=== PATIENT | female | born 1955 | race Caucasian/White ===

== ENCOUNTER 2022-06-21 07:35 | Inpatient (IN) | payer MEDICARE ==
[~2022-06-21] VITALS: Ht 165.1 cm; Wt 62.0 kg
[2022-06-21] MEDS ORDERED: WELLBUTRIN XL300 MG PO (08:02)
[2022-06-21] MEDS ORDERED: MULTI VITAMIN1 EACH PO (08:02)
[2022-06-21] MEDS ORDERED: FLUTICASONE PRO16 GM INH (13:34)
[2022-06-21] MEDS ORDERED: AMITRIPTYLINE H10 MG PO (13:35)
[2022-06-21] MEDS ORDERED: BUPROPION XL150 MG PO (13:36)
[2022-06-24] MEDS ORDERED: FISH OIL 1,0001 EAC2 PO (16:44)
[2022-06-24] MEDS ORDERED: CALCIUM500 MG PO (16:44)
[2022-06-24] MEDS ORDERED: ASPIRIN81 MG PO (16:44)
[2022-06-24] MEDS ORDERED: VITAMIN D350 MCG PO (16:45)
[2022-06-24] MEDS ORDERED: VITAMIN E400 UNI1 PO (16:45)
--- NOTE | 2022-06-26 14:14 | OR ---
[facility] [address] [place], [place] [address] Signed DATE OF OPERATION: 06/21/2022 SURGEON: Nhung Bethea MD PREOPERATIVE DIAGNOSIS: Acute small bowel obstruction/closed loop obstruction distal small bowel. POSTOPERATIVE DIAGNOSIS: Cecal volvulus with ischemic changes. PROCEDURE: Exploration of abdomen with resection of portion of right colon and ileum with end-to-end enterocolostomy. ANESTHESIA: General endotracheal, Chris Masoud, COTTON JAMMER and postoperative tap block. INDICATION: This 66-year-old white woman, is from [place], [place], and more than 2 weeks ago, underwent a robotic abdominal hysterectomy with bladder suspension by Dr. Blankenship, in [place], [place]. On Thursday of this past week, she had her 2-week followup and was doing quite well. Later that day after her followup visit, she began having rather severe and intense central abdominal pain, which worsened over time. 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 My inspection of the CT scan shows what is at least a closed loop obstruction with a very dilated bowel. Though she does not have systemic toxicity, I have recommended prompt exploration and remedy of the problem. Given the findings, a laparoscopic approach is unlikely to be beneficial and on that basis, I have recommended laparotomy minimizing the incision as much as possible. The patient and her daughter, who tends to her understand the risks of bleeding, infection, need for bowel resection, and other unforeseen complications and wished to proceed. FINDINGS: There was no evidence of small bowel obstruction proper. Rather, there was cecal volvulus, which was quite profound and with ischemic changes. There was no mila Electronically Signed By: NHUNG BETHEA MD 06/26/22 1414 PATIENT NAME: MARKELL LACKEY OPERATIVE REPORT DATE OF : 57 REPORT #: [id number] PHYSICIAN: NHUNG BETHEA MD PCP: OTHER PCP REPORT IS CONFIDENTIAL AND NOT TO BE RELEASED WITHOUT AUTHORIZATION [facility] [address] [place], [place] [address] Signed necrosis of the cecum it is admitted. There was evidence of prior appendectomy with real over an appendiceal stump. Notably, there was about 2 cm of appendiceal stump that remained. There was scar tissue on the pelvic sidewall, which may have formed a fixation point for the terminal ileum as it was densely adhesed there, though the right colon and cecum were quite mobile. Freeing of the terminal ileum and detorsing the cecum was undertaken, but there were ischemic changes of the cecum and although not frankly necrotic, cecal resection with portion of ileum was deemed most advisable for long-term management and was accomplished. The small bowel proximally was somewhat dilated, but not markedly so and the remaining right colon and transverse colon are viable. There was no other finding of note. DESCRIPTION OF PROCEDURE: The patient was brought to the operating room and given a general endotracheal anesthetic, preoperative antibiotic cefoxitin was given. Sequential compression device stockings were used and heparin subcutaneously administered. A Banerjee catheter was placed. A nasogastric tube was already in place. The abdomen was prepared with a chlorhexidine solution after removing skin adhesive from recent laparoscopic (robotic) trocar sites. A limited circumumbilical incision was made initially plan for entry into the abdominal cavity. A fair amount of ascites type fluid was noted. There was no evidence of purulence or foul odor. Small bowel loops appeared reasonably viable and not particularly excessively dilated. A palpable dilated segment of bowel was noted to the right of the midline and ischemic changes were quite obvious. An incision was extended a bit inferiorly and superiorly to allow for delivery of the small bowel out of the abdomen. The terminal ileum was quite normal and the antimesenteric fat pad of treive was easily identified signifying the terminal ileum. As it turns out, there was no small bowel obstruction proper, but rather cecal volvulus with secondary small bowel dilation. The small bowel was returned to the abdomen and the mobile cecum was delivered out of the abdomen. Ischemic changes were noted and tears of the serosa also noted. Although the cecum was not frankly necrotic, once detorsed it still had ischemic changes and on that basis, resection was deemed advisable. Notably, the terminal ileum was somewhat scarred to the right lower pelvic area, where prior appendectomy had been undertaken. The mesentery of the terminal ileum was freed from the pelvic encumbrance with electrocautery, mobilizing the terminal ileum more fully. The cecum and right colon were markedly nonfixed. The white line of Toldt was freed with electrocautery delivering the ileum and the cecum and portion of right colon out of the abdomen quite nicely. An area designated as viable of the right colon was identified and marked with a stitch Electronically Signed By: NHUNG BETHEA MD 06/26/22 1414 PATIENT NAME: MARKELL LACKEY OPERATIVE REPORT DATE OF : 57 REPORT #: [id number] PHYSICIAN: NHUNG BETHEA MD PCP: OTHER PCP REPORT IS CONFIDENTIAL AND NOT TO BE RELEASED WITHOUT AUTHORIZATION [facility] [address] [place], [place] [address] Signed as was the terminal ileum. The mesentery corresponding to the area for resection of the cecum and the ileum were scored with electrocautery. Hemostats applied to the vascular pedicles. The vascular pedicles were secured with 0 silk ties. A AP stapling device was used to transect the right mid colon as well as the terminal ileum. Additional segments were resected later so as to assure complete viability. Though a usual anastomosis for the ileum to the right colon would be an end-to-side approach in this situation, an end-to-end ileal right colostomy was a good size match and on that basis accomplished in an end-to-end configuration. Seromuscular bites of 3-0 silk suture were used on the right colon and serosa of the ileum with excision of the staple lines. The anastomosis was completed with an inner layer of interrupted 3-0 Vicryl and an outer layer of interrupted 3-0 silk. Excellent patency was noted to the anastomosis both proximal and distal segments were quite viable and there was no enteric leakage. The mesenteric defect was reapproximated with interrupted 3-0 silk suture to avoid transmesenteric herniation in the future. Copious irrigation of the abdomen was undertaken with warm saline solution. Excess saline solution was suctioned free. Palpation of the liver showed to be normal. The gallbladder was slightly distended, but no palpable stones were noted. Attention was then turned towards closure. The midline fascia was reapproximated with running bidirectional #1 PDS suture. Subcutaneous tissue was irrigated and skin closed with running subcuticular 3-0 Vicryl. Not mentioned previously was the change of gloves following the anastomosis that had been performed. The patient was ultimately extubated and transferred to the recovery room in good condition and suffered no complications. Sponge, needle, and instrument counts reported as correct x3. Blood loss was estimated at 50 mL. MD KEVIN Swenson/MODL /[id number] cc: Brianna Alvarez MD Electronically Signed By: NHUNG BETHEA MD 06/26/22 1414 PATIENT NAME: MARKELL LACKEY OPERATIVE REPORT DATE OF : 57 REPORT #: [id number] PHYSICIAN: NHUNG BETHEA MD PCP: OTHER PCP REPORT IS CONFIDENTIAL AND NOT TO BE RELEASED WITHOUT AUTHORIZATION [facility] [address] [place] [id number] Signed Copies: Brianna Blankenship WILLIAM S MD ~ Electronically Signed By: NHUNG BETHEA MD 06/26/22 1414 PATIENT NAME: MARKELL LACKEY OPERATIVE REPORT DATE OF : 57 REPORT #: [id number] PHYSICIAN: NHUNG BETHEA MD PCP: OTHER PCP REPORT IS CONFIDENTIAL AND NOT TO BE RELEASED WITHOUT AUTHORIZATION
--- NOTE | 2022-06-26 14:14 | HP ---
[facility] [address] [place], [place] [address] Signed ADMISSION DATE: 06/21/2022 REASON FOR ADMISSION: Closed-loop small bowel obstruction. HISTORY OF PRESENT ILLNESS: This 66-year-old white woman is from [place], [place]. She is here transitioning to live in [place] with her adult daughter. On Thursday (today is Thursday), she began having abdominal pain in the upper and mid abdomen, which was intense and cramping and had "waves of pain." She has had no bowel movement or passage of flatus since that time. It is notable that she underwent robotic hysterectomy and bladder sling operation in [place] by Dr. Stearns and had undergone her two-week followup the day that her symptoms started. She was having no symptoms upon her followup visit actually. The patient did have some postoperative constipation and was taking Colace and MiraLAX. She has a distant history of appendectomy and has had colonoscopy in October with no findings of concern. For evaluation in emergency room by Dr. Alvarez included clinical examination and lab studies which showed normal electrolytes and a normal CBC. Her COVID test is pending. A CT scan of the abdomen without GI contrast, but with IV contrast demonstrated a closed-loop obstruction of small bowel in the right mid abdomen. She is admitted for further evaluation and care. ALLERGIES: She does have allergies to bee sting and sulfa medications. MEDICATIONS: She does take Wellbutrin as well as multivitamin. SOCIAL HISTORY: She lived alone in [place] and now is transitioning to live in [place] currently with her daughter. 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 REVIEW OF SYSTEMS: She denies any shortness of breath or chest pain. She has less abdominal pain since the nasogastric tube has been placed. She had very severe pain three days ago, which has moderated in time. PHYSICAL EXAMINATION: GENERAL: A thin white woman, who does not look systemically toxic. Electronically Signed By: NHUNG BETHEA MD 06/26/22 1414 PATIENT NAME: MARKELL LACKEY HISTORY AND PHYSICAL DATE OF : 57 REPORT #: [id number] PHYSICIAN: NHUNG BETHEA MD PCP: OTHER PCP REPORT IS CONFIDENTIAL AND NOT TO BE RELEASED WITHOUT AUTHORIZATION [facility] [address] [place], [place] [address] Signed VITAL SIGNS: Weight is 131 pounds, BMI 21.9. HEENT: Trachea is midline. Mucous membranes slightly moist. She has received at least 1 L of crystalloid solution. CHEST: Normal respiratory excursion without wheeze or rhonchi. HEART: Regular without murmur. ABDOMEN: Flat, soft. Laparoscopic incision sites are healing well. There is no sign of herniation in any of them. She has no abdominal wall ecchymosis particularly. Abdominal palpation shows mild tenderness in the right abdomen. She does not have ascites or distended abdomen particularly. EXTREMITIES: No clubbing, cyanosis, or edema. LABORATORY STUDIES: White count of 9.3, hematocrit 47.7. Normal electrolytes. Creatinine 0.92. I have reviewed the CT scan in detail. It is noted as a "high-grade small bowel obstruction with fluid dilation of right mid and distal small bowel with a transition point in the right abdomen." A clear examination particularly on the coronal view shows an obvious closed-loop obstruction of bowel, which was markedly dilated, does not show signs of perforation (yet). ASSESSMENT: The patient has a closed-loop small-bowel obstruction. The etiology of this is uncertain; she has recently had robotic surgery. There appears to be no entanglement of the bowel and to the recent operative site intra-abdominally and this certainly no sign of incisional hernia. She has had appendectomy and this may have served as a focus of adhesions to cause a closed-loop obstruction finding. I would recommend operation. I believe a laparoscopic approach would be unlikely in this situation; she has had four days now of probable closed-loop obstruction and I think there may be a high risk of ischemic bowel for which a bowel resection may be necessary. It is certainly peculiar that her symptoms began only after her postoperative visit, but they have been unremitting and worsening over time. I discussed all this with the patient and her daughter who is present. PLAN: We will initiate additional fluid resuscitation, IV antibiotic cefoxitin, anticipating operation today. This may require simple detorsion or lysis of adhesions or may require a small bowel resection. It is that remains to be determined. Nhung Bethea MD Electronically Signed By: NHUNG BETHEA MD 06/26/22 1414 PATIENT NAME: MARKELL LACKEY HISTORY AND PHYSICAL DATE OF : 57 REPORT #: [id number] PHYSICIAN: NHUNG BETHEA MD PCP: OTHER PCP REPORT IS CONFIDENTIAL AND NOT TO BE RELEASED WITHOUT AUTHORIZATION [address] [address] Signed /[facility] /[id number] cc: Brianna Blankenship MD Copies: ~ Electronically Signed By: NHUNG BTEHEA MD 06/26/22 1414 PATIENT NAME: MARKELL LACKEY HISTORY AND PHYSICAL DATE OF : 57 REPORT #: [id number] PHYSICIAN: NHUNG BETHEA MD PCP: OTHER PCP REPORT IS CONFIDENTIAL AND NOT TO BE RELEASED WITHOUT AUTHORIZATION
[2022-06-28] MEDS ORDERED: ACETAMINOPHEN500 MG PO (16:02)
[2022-06-28] MEDS ORDERED: ONDANSETRON4 MG/2 M1 IV (16:03)
[2022-06-28] MEDS ORDERED: FAMOTIDINE20 MG PO (16:03)
--- NOTE | 2022-06-29 15:53 | DS ---
[facility] [address] [place], [place] [address] Signed ADMISSION DATE: 06/21/2022 DISCHARGE DATE: 06/28/2022 REASON FOR ADMISSION: This 66-year-old white woman is from [place], [place] and transitioned to live in [place] with her adult daughter. On Thursday (admission was Thursday), she began having abdominal pain in the upper and right mid abdomen, which was intense and cramping and came in waves. She had no bowel movement or passage of a flatus since that time. She recently underwent robotic hysterectomy and bladder sling operation in [place], [place] by Dr. Blankenship and had undergone her two week followup the day that her symptoms started. She was having no symptoms at the time of her postoperative visit, however. Her evaluation in the emergency room by Dr. Armando Culver included a CT scan of the abdomen with IV, but without GI contrast demonstrating a closed-loop obstruction of what appeared to be small bowel in the right mid abdomen. She was admitted for further evaluation and care. PERTINENT PHYSICAL EXAMINATION: GENERAL: Showed a thin white woman. VITAL SIGNS: A 131 pounds, BMI 21.9. NECK: Trachea was midline. HEENT: Mucous membranes slightly moist. CHEST: Clear. HEART: Regular, without murmur. ABDOMEN: Flat and soft. Laparoscopic incision sites were healing well. There was no sign of herniation. She had no abdominal wall ecchymosis particularly, abdominal palpation shows mild tenderness in the right abdomen. She did not have ascites or abdominal distention particularly. LABORATORY STUDIES: Showed white count 9.3 and hematocrit 47.7. Creatinine 0.92. Other studies were normal. HOSPITAL COURSE: She was considered to have probable closed loop small bowel obstruction based on radiographic findings and radiologist interpretation. She underwent prompt exploration of the abdomen, which showed no evidence of small bowel obstruction, but rather a cecal volvulus with ischemic changes of the cecum. She underwent segmental bowel resection of ileum and cecum and portion of right colon with an end-to-end ileocolonic anastomosis. Her postoperative course was somewhat delayed in comparison to usual, but she did have progressive recovery, particularly after withdrawal of perioperative opiates that had Electronically Signed By: NHUNG BETHEA MD 06/29/22 1553 PATIENT NAME: MARKELL LACKEY DISCHARGE SUMMARY DATE OF : 57 REPORT #: [id number] PHYSICIAN: NHUNG BETHEA MD PCP: OTHER PCP REPORT IS CONFIDENTIAL AND NOT TO BE RELEASED WITHOUT AUTHORIZATION [address] [address] Signed been given. Notably, she had been given abdominal wall tap blocks for postoperative pain management. In time, she had recovery of bowel function as well as improvement of her pain. By the day of discharge, she is ambulating well, tolerating a regular diet, has multiple bowel movements and no evidence of problem. DISCHARGE MEDICATIONS: Included: 1. Tylenol 1000 mg p.o. q.6 hours p.r.n. pain #30, refill three. 2. Zofran 4 mg 1-2 q.6 hours as needed for nausea (unlikely now), #10. 3. Pepcid 20 mg p.o. q.12 hours, #60, refill one. She will resume her usual medication, which includes: 1. Multivitamin. 2. Fluticasone spray each nostril b.i.d. as needed. 3. Bupropion XL 150 mg tablet, extended release two tablets p.o. daily. 4. Aspirin 81 mg p.o. daily. 5. Calcium carbonate tablet 500 mg p.o. daily. 6. [place]-3 fatty acid fish oil pill one p.o. daily. 7. Vitamin D3 150 mcg (2000 unit) cap daily. 8. Vitamin E, mixed vitamin one capsule daily. FOLLOWUP PLAN: She is return to see me in approximately 4 weeks. She will call to make an appointment on Thursday. She is advised to lift no more than 20 pounds for the next 4 weeks. She restricted in her diet. She is encouraged to ambulate on a routine basis. DISCHARGE DIAGNOSES: 1. Acute abdominal pain with the findings of cecal volvulus, status post exploration and right partial colectomy with primary anastomosis. 2. Recent robotic operation for bladder suspension and hysterectomy without complication. 3. Anxiety disorder. MD KEVIN Swenson/[facility]ELISS[facility] /[id number] Electronically Signed By: NHUNG BETHEA MD 06/29/22 1553 PATIENT NAME: MRAKELL LACKEY DISCHARGE SUMMARY DATE OF : 57 REPORT #: [id number] PHYSICIAN: NHUNG BETHEA MD PCP: OTHER PCP REPORT IS CONFIDENTIAL AND NOT TO BE RELEASED WITHOUT AUTHORIZATION [address] [address] Signed cc: Dr. Pattie Culver MD Copies: ARMANDO CULVER MD ~ Electronically Signed By: NHUNG BETHEA MD 06/29/22 1553 PATIENT NAME: MARKELL LACKEY DISCHARGE SUMMARY DATE OF : 57 REPORT #: [id number] PHYSICIAN: NHUNG BETHEA MD PCP: OTHER PCP REPORT IS CONFIDENTIAL AND NOT TO BE RELEASED WITHOUT AUTHORIZATION
== END 2022-06-28 17:35 | disposition home or self-care (01) | DRG 331 ==
LOC: ED 07:35 → MS 07:37
PROVIDERS: ADMIT Surgery; ATTEND Surgery
PROC: 8E0W4CZ Robotic Assisted Procedure of Trunk Region, Percutaneous Endoscopic Approach (ICD-10-PCS; 2022-06-21)
PROC: 0DBF4ZZ Excision of Right Large Intestine, Percutaneous Endoscopic Approach (ICD-10-PCS; principal; 2022-06-21 16:25)
DX: K55.1 Chronic vascular disorders of intestine (principal); Z20.822 Contact with and (suspected) exposure to COVID-19; F41.9 Anxiety disorder, unspecified; Z91.030 Bee allergy status; Z90.710 Acquired absence of both cervix and uterus; Z88.2 Allergy status to sulfonamides; Z79.899 Other long term (current) drug therapy
CPT/HCPCS: 36415; 74018; 74019; 74177; 76942; 80048; 80053; 81001; 83690; 83735; 85025; 87088; 87502; 94762; 96361; 96375; 99285-25; A9270; C9803; J0131; J0694; J1100; J1170; J1644; J1885; J2001; J2270; J2405; J2704; J2765; J2795; J3010; J3475; J7030; J7121; Q9967; U0003

== ENCOUNTER 2022-07-05 17:52 | Emergency (ER) | payer MEDICARE ==
[~2022-07-05] VITALS: Ht 165.1 cm; Wt 58.5 kg
[~2022-07-05 17:52] MED LIST: ACETAMINOPHEN500 MG PO; AMITRIPTYLINE H10 MG PO; ASPIRIN81 MG PO; BUPROPION XL150 MG PO; CALCIUM500 MG PO; FAMOTIDINE20 MG PO; FISH OIL 1,0001 EAC2 PO; FLUTICASONE PRO16 GM INH; MULTI VITAMIN1 EACH PO; ONDANSETRON4 MG/2 M1 IV; VITAMIN D350 MCG PO; VITAMIN E400 UNI1 PO; WELLBUTRIN XL300 MG PO
--- OUTSIDE RECORDS SUMMARY | 2022-07-05 18:00 | XMS ---
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 EElissa VISIT COUNT (12 MO.) 2 [facility] TOTAL 2 NOTE: Visits indicate total known visits. ED/UCC VISIT TRACKING (12 MO.) 07/05/2022 17:53 [facility] TYPE: Emergency COMPLAINT: - POST OP PROBLEM 06/21/2022 07:36 [facility] TYPE: Emergency COMPLAINT: - ABD PAIN INPATIENT VISIT TRACKING (12 MO.) 06/21/2022 10:[address] [facility] [place] TYPE: Medical Surgical COMPLAINT: - SBO DIAGNOSES: - Contact with and (suspected) exposure to COVID-19 - Other correction (current) drug therapy - Contact with and (suspected) exposure to COVID-19 - Allergy status to sulfonamides - Anxiety disorder, unspecified - Allergy status to sulfonamides - Other ascites - Volvulus - Other correction (current) drug therapy - Bee allergy status - Anxiety disorder, unspecified - Acquired absence of both cervix and uterus - Bee allergy status - Chronic vascular disorders of intestine - Acquired absence of both cervix and uterus - Unspecified intestinal obstruction, unspecified as to partial versus complete obstruction - Chronic vascular disorders of intestine [email or web address]
[2022-07-05] MEDS ORDERED: CEPHALEXIN500 M1 PO (20:07)
--- NOTE | 2022-07-07 18:00 | EKG ---
[facility] [address] [facility] [place], [place] [address] Signed Sinus tachycardia Otherwise normal ECG No previous ECGs available Confirmed by AMARI GROSSMAN MD ([id number]) on 07/07/2022 6:00:26 PM Electronically Signed By: AMARI GROSSMAN MD 07/07/22 1800 PATIENT NAME: MARKELL LACKEY Electrocardiogram DATE OF : 57 PHYSICIAN: AMARI GROSSMAN MD REPORT #: [id number] REPORT IS CONFIDENTIAL AND NOT TO BE RELEASED WITHOUT AUTHORIZATION
== END 2022-07-05 20:44 | disposition home or self-care (01) ==
LOC: ED 17:52
DX: T81.41XA Infection following a procedure, superficial incisional surgical site, initial encounter (principal); Z88.2 Allergy status to sulfonamides; Z91.030 Bee allergy status; Z79.899 Other long term (current) drug therapy; Z79.82 Long term (current) use of aspirin
CPT/HCPCS: 36415; 71045; 80053; 81001; 83605; 85025; 85610; 85730; 87502; 93005; 93010; 99284-25; A9270; C9803; J0171; U0003

== ENCOUNTER 2022-11-08 07:29 | Inpatient (IN) | payer MEDICARE ==
[~2022-11-08] VITALS: Ht 165.1 cm; Wt 65.0 kg
--- NOTE | ~2022-11-08 | DS ---
[facility] [address], [place] [address] Draft ADMISSION DATE: 11/10/2022 DISCHARGE DATE: 11/13/2022 REASON FOR ADMISSION: This 67-year-old white woman underwent complex abdominal wall reconstruction for an incisional hernia by az on November 04 (Thursday). She is admitted on Thursday following operation. She had been admitted postoperative for pain management, required 48 hours of hospitalization. Component separation technique was used for closure of the hernia. Medialization of the linea alba was accomplished as well as implantation of Prolene mesh in the properitoneal space. The patient while at home had bloating, nausea, and inability to tolerate oral intake. Her family took her to [facility] Room in [facility], where she underwent a CT scan, which noted to have stool within the right colon, but some distended loops of small bowel including those on the left side, she was considered possibly to have an ileus. She was discharged to home nevertheless, and had been taking Dilaudid, Motrin and Tylenol for pain medication. 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 She is admitted for further evaluation and care on the basis of abdominal distention, dilated loops of small bowel and findings suggestive of ileus. PERTINENT PHYSICAL EXAMINATION: GENERAL: Showed a pleasant white woman, who does not look systemically toxic. VITAL SIGNS: Temperature 98.6, pulse 107, blood pressure 145/92. HEENT: Mucous membranes are slightly dry. ABDOMEN: Quite distended compared to preoperatively and postoperatively recently. Drain showed serosanguineous fluid. She did not have tenderness to the abdominal wall in any way. There is no sign of erythema, crepitus, or signs of ecchymosis. HOSPITAL COURSE: She was considered likely to have an ileus of uncertain etiology. She was unable to tolerate oral intake and on that basis, was admitted for IV hydration and further monitoring. The patient had recurrent nausea and protracted vomiting, for which a nasogastric tube was placed, which improved her clinical situation quite markedly. She had a fair amount of distended bowel loops. She was begun on intravenous Reglan, nasogastric tube continued to put out a fair amount of bilious fluid. She began having some bowel function with air and some liquid bowel movement. Her drains that had been placed bilaterally in the subcutaneous space had diminishing amounts of output. Nasogastric tube was removed and she was initiated on a liquid diet and subsequently advanced to full liquid and ultimately a solid diet. She was discontinued on the Reglan, which she tolerated well. By day of discharge, she is ambulating well, PATIENT NAME: MARKELL LACKEY DISCHARGE SUMMARY DATE OF : 57 REPORT #: [id number] PHYSICIAN: NHUNG BETHEA MD PCP: COLIN VELA REPORT IS CONFIDENTIAL AND NOT TO BE RELEASED WITHOUT AUTHORIZATION [address] [address] [place] tolerating a regular diet, has no abdominal distention and the drains in the subcutaneous space had been removed. It is considered probable that she had an ileus of uncertain etiology with associated dehydration and has recovered fully from it. DISCHARGE MEDICATIONS: Include: 1. Fluticasone spray inhaler b.i.d. 2. Bupropion XL 150 mg two tablets p.o. daily. 3. Aspirin 81 mg p.o. daily. 4. Calcium carbonate 500 mg p.o. daily. 5. Fish oil tablet one p.o. daily. 6. Vitamin D3 2000 units p.o. daily. 7. Vitamin E 400 units p.o. daily. 8. Magnesium chloride 64 mg tablet p.o. daily. 9. Ibuprofen 600 mg p.o. q.6 hours p.r.n. pain. 10. Tylenol 1000 mg p.o. q.6 hours p.r.n. pain. 11. Milk of magnesia 400 mg for 5 mL p.o. daily as needed. 12. She will complete if necessary her Dilaudid 4 mg one-two p.o. q.4 hours p.r.n. pain, though she has only 10 tablets remaining. 13. Her Augmentin that was prescribed postoperatively will be discontinued. DISCHARGE DIAGNOSES: 1. Postoperative prolonged and protracted ileus with spontaneous resolution with supportive measures. 2. History of recent complex abdominal wall reconstruction included component separation technique and implantation of Prolene mesh in underlay technique. 3. Distant history of robotic hysterectomy. 4. 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 5. Anxiety disorder. MD KEVIN Swenson/CHAVA /[id number] PATIENT NAME: MARKELL LACKEYIS DISCHARGE SUMMARY DATE OF : 57 REPORT #: [id number] PHYSICIAN: NHUNG BETHEA MD PCP: COLIN VELA REPORT IS CONFIDENTIAL AND NOT TO BE RELEASED WITHOUT AUTHORIZATION [address] [place], [place] [address] Draft cc: Armando Alvarez MD Copies: ARMANDO ALVAREZ MD ~ PATIENT NAME: MARKELL LACKEY DISCHARGE SUMMARY DATE OF : 57 REPORT #: [id number] PHYSICIAN: NHUNG BETHEA MD PCP: COLIN VELA REPORT IS CONFIDENTIAL AND NOT TO BE RELEASED WITHOUT AUTHORIZATION
[~2022-11-08 07:29] MED LIST changes: +ADULT LOW DOSE81 MG PO; +ADVIL200 M1 PO; -ASPIRIN81 MG PO; +AUGMENTIN 500-1 EACH PO; +CEPHALEXIN500 M1 PO; +DILAUDID4 MG PO; +LASIX40 MG; +MAG6464 MG PO; +MILK OF MA400 MG/5 M PO; +MOTRIN IB200 MG PO; +TYLENOL EXTRA500 MG PO; +[UNRECOGNIZED DRUG - OTHER] PO
--- OUTSIDE RECORDS SUMMARY | 2022-11-08 07:32 | XMS ---
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 E.D. VISIT COUNT (12 MO.) 1 Located Within [facility] 3 [facility] TOTAL 4 NOTE: Visits indicate total known visits. ED/UCC VISIT TRACKING (12 MO.) 11/08/2022 07:29 [facility] TYPE: Emergency COMPLAINT: - POST SURGERY SIDE EFFECTS [facility]07/2022 16:[facility] DIAGNOSES: - Post-op Problem - Drug induced constipation 07/05/2022 17:53 [facility] TYPE: Emergency COMPLAINT: - POST OP PROBLEM DIAGNOSES: - Allergy status to sulfonamides - Other intermediate teacher (current) drug therapy - Infection following a procedure, superficial incisional surgical site, initial encounter - alf (current) use of aspirin - Contact with and (suspected) exposure to COVID-19 - Bee allergy status 06/21/2022 07:36 [facility] TYPE: Emergency COMPLAINT: - ABD PAIN INPATIENT VISIT TRACKING (12 MO.) 06/21/2022 10:57 [facility] TYPE: Medical Surgical COMPLAINT: - SBO DIAGNOSES: - Allergy status to sulfonamides - Anxiety disorder, unspecified - Allergy status to sulfonamides - Other ascites - Volvulus - Other snf (current) drug therapy - Bee allergy status - Anxiety disorder, unspecified - Acquired absence of both cervix and uterus - Bee allergy status - Chronic vascular disorders of intestine - Unspecified intestinal obstruction, unspecified as to partial versus complete obstruction - Acquired absence of both cervix and uterus - Chronic vascular disorders of intestine - Contact with and (suspected) exposure to COVID-19 - Other intermediate teacher (current) drug therapy - Contact with and (suspected) exposure to COVID-19 [email or web address]
--- NOTE | 2022-11-08 10:30 | NUR ---
PT ASSESSMENT COMPLETED. PT RESTING IN BED WITH CALL LIGHT WITHIN REACH, BEDRAIL UP FOR SAFETY. PT HAS LR @ 125ML/HR IN LEFT AC IV. PT TOLERATING WELL.
--- NOTE | 2022-11-08 12:06 | NUR ---
PT CALLED STATING IV PUMP IS BEEPING. PT IV ALARMED FOR DISTAL OCCLUSION. IV STARTED. PT RESTING IN BED, CALL LIGHT WITHIN REACH AND BEDRAIL UP FOR SAFETY. PT DENIES FURTHER NEEDS AT THIS TIME.
--- NOTE | 2022-11-08 12:26 | NUR ---
PT REQUESTING A HEATING PAD AND NAUSEA MEDICATION. PRN ZOFRAN GIVEN AT THIS TIME (SEE EMAR). PRIMARY NURSE UPDATED.
--- NOTE | 2022-11-08 13:42 | NUR ---
PATIENT HAD 200ML GREEN BILE EMESIS. ADMINISTERED REGLAN IV PER MAR AND PRN TORADOL IV. PATIENT RATING PAIN 6/10 ON PAIN SCALE AFTER EMESIS. ABDOMINAL BINDER IN PLACE, PATIENT HAS MARNI MIDLINE INTACT. ABDOMEN APPEARS DISTENDED WITH BOWEL TONES HYPOACTIVE. PATIENT REPORTS THAT SHE HAS NOT ATE IN TWO DAYS AND HAS NOT PASSED ANY FLATUS. PATIENT RESTING BACK IN BED WATCHING TV, APPEARS CALM. FRIEND AT BEDSIDE. NO OTHER NEEDS AT THIS TIME.
--- NOTE | 2022-11-08 16:15 | NUR ---
medications reconciled
--- NOTE | 2022-11-08 19:30 | NUR ---
REPORT RECEIVED FROM ROXANN DEVLIN. PT SITTING UP IN CHAIR. PT REQUESTING TO WALK. PROVIDED PT WITH A SECOND GOWN TO COVER BACK SIDE. AND IV PUMP UNPLUGGED FOR PT TO WALK AROUND MED SURG FLOOR. NO OTHER NEEDS FROM THIS RN AT THIS TIME.
--- NOTE | 2022-11-08 21:18 | NUR ---
IN TO ADMINISTER MEDICATION, SEE MAR. NATALIE CNA IN WITH PT. PT TOELRATES SUB-Q INJECTION WELL. ASSESSMENT COMPLETE. LUNG SOUNDS CLEAR. BOWEL TONES HYPOACTIVE. PT REPORTS NO TENDERNESS WITH PALPATION TO ABD. ABD SLIGHTLY FIRM. MODERATE DISTENTION NOTED. PT REPORTS PAIN 6/10 IN LOWER BACK AND "LITTLE BIT IN MY BELLY." PERI DRAIN ON LLQ EMPTIED 25ML OF SEROSANGUENOUS FULID. PERI DRAIN ON RLL EMPTIED 10ML OF SEROSANGUENOUS FLUID. MIDLINE INCISION STERISTRIPS C/D/I. ABD BINDER IN PLACE. DRESSING TO LLQ D/I WITH SEROSANGUENOUS SHADOWING COVERING DRESSING. DRESSING TO RLQ D/I WITH SEROSANGUENOUS SHADOWING COVERING DRESSING. ICE CHIPS PROVIDED. IV INFUSING WNL. PT REPORTS NO OTHER NEEDS AT THIS TIME. CALL LIGHT IN REACH.
--- NOTE | 2022-11-08 22:14 | NUR ---
IN ROOM TO ADMINISTER PRN PAIN MEDICATION FOR PAIN 6/10 IN LOWER BACK AND RLQ AND RUQ, SEE MAR. UPON ENTERING ROOM PT REPORTS EMESIS. EMESIS BAG FILLED TO 400ML LINE. OFFERED PT JACOBO, PT REFUSES AND STATES "THAT MAKES IT WORSE." OUT OF ROOM TO CALL DR. BETHEA. THIS RN ASKED MICKY ESTRADA TO PROVIDE PT WITH MORE EMESIS BAG.
--- NOTE | 2022-11-08 22:29 | NUR ---
THIS RN CALLED DR. BETHEA DUE TO PT EMESIS AND REFUSING ZOFRAN. NEW ORDERS RECEIVED TO PLACE NG TUBE AND CHEST X-RAY TO CONFIRM. VERIFIED WITH READ BACK.
--- NOTE | 2022-11-08 22:43 | NUR ---
THIS RN, IN ROOM WITH ROXANN LERNER AND ROXANN MARTIN. TALKED TO PT ABOUT HAVING NG TUBE PLACED. PT AGREEABLE TO NG TUBE PLACEMENT. THIS RN ATTEMPTED TO PLACE NG TUBE TO L NOSTRIL, UNSUCCESSFUL TO GET THE TIP OF THE NG TUBE TO ADVANCE. ROXANN LERNER ATTEMPTED WITH L NOSTRIL AND WAS ALSO HAVING A DIFFICULT TIME GETTING THE TIP OF THE NG TUBE TO ADVANCE. ROXANN LERNER ATTEMPTED R NOSTRIL AND WAS SUCCESSFUL WITH GETTING THE NG TUBE TO ADVANCE. IMAGING CALLED TO PERFORM CHEST X-RAY TO CONFIRM PLACEMENT. PT SITTING UP IN BED WITH EYES CLOSED RR EVEN AND UNLABORED. PT REPORTS NO OTHER NEEDS AT THIS TIME. CALL LIGHT IN REACH.
--- NOTE | 2022-11-08 23:02 | NUR ---
IMAGING TO ROOM TO PERFORM CHEST X-RAY. PT SITTING UP IN BED WITH EYES CLOSED RR EVEN AND UNLABORED. AFTER CHEST X-RAY THIS RN ASKED THE PT IF SHE NEEDED ANYTHING. PT STATES "NO" AND GOES BACK TO CLOSING HER EYES AND RESTING IN BED. CALL LIGHT IN REACH.
--- NOTE | 2022-11-08 23:44 | NUR ---
IN TO ROUND ON PT. PT DENIES ANY NAUSEA AT THIS TIME. PT REPORTS PAIN 5/10 IN LOWER BACK AND RUQ AND RLQ. PT SITTING UP IN BED WITH EYES CLOSED. RR EVEN AND UNLABORED.
--- NOTE | 2022-11-08 23:57 | NUR ---
IN TO ROUND ON PT. PT REPORTING PAIN 5/10 IN LOWER BACK AND RIGHT SIDE OF ABD. PRN TYLENOL ADMINISTERED, SEE MAR. IV PUMP ALARMING, RESOLVED. NEW BAG OF FLUIDS STARTED, SEE MAR. PT RESTING IN BED WITH EYES CLOSED. RR EVEN AND UNLABORED. PT REPORTS NO OTHER NEEDS AT THIS TIME. CALL LIGHT IN REACH.
--- NOTE | 2022-11-09 00:15 | NUR ---
IN TO ANSWER CALL LIGHT. IV PUMP ALARMING, RESOLVED. NG TUBE PLACED TO LIWS AT THIS TIME. PT REPORTS NO OTHER NEEDS. CALL LIGHT IN REACH.
--- NOTE | 2022-11-09 01:45 | NUR ---
IN ROOM TO ANSWER CALL LIGHT. IV ALARMING, RESOLVED. PT REPORTING PAIN 4/10 IN LOWER BACK. OFFERED PT HEAT PACK PT STATES "NO THOSE THINGS MOVE AROUND AND DO NOT STAY IN PLACE." OFFERED PT WARM BLANKET TO PLACE UNDER BACK PT ACCEPTS. WARM BLANKET PLACED UNDER BACK PT STATES "THAT FEELS A LITTLE BETTER." VITALS COMPLETE. PTs O2 AT 82% ON RA ENCOURAGED PT TO TAKE DEEP BREATHS AND USE IS. EDUCATION ON IS USE. PT USES IS 6 TIMES UP TO THE 500 MANDIE. PTs O2 INCREASES TO 90% ON RA. PT STATES "I STILL HAVE SOME OF THAT LUBRICANT IN MY NOSTRIL AND IT IS MAKING IT HARD TO BREATH." THIS RN OBTAINED A BULB SYRINGE TO ATTEMPT TO SUCTION ANY EXTRA LUBRICANT OUT. PTs O2 SATS CHECKED AND PT IS AT 84% ON RA. PLACED PT ON 2L OXYMASK AND O2 INCREASES TO 97% AND SUSTAINS. I&Os COMPLETE. PT REQUESTING TOILETING. SBA FROM BED TO RESTROOM. PT HAS STEADY GAIT. URINE OUTPUT NOTED. PT STATES "I PASSED SOME GAS." PT BACK IN BED. NG TO LIWS. 300ML OUTPUT FROM NG TUBE NOTED, COLOR DARK GREEN. IV INFUSING WNL. PERI DRAIN IN LLQ EMPTIED 10ML.
--- NOTE | 2022-11-09 02:28 | NUR ---
ASSESSMENT COMPLETE. LUNG SOUNDS EXPIRATORY RHONCHI THAT CLEARS WITH COUGH AND IS USE. NANDINI RT IN ROOM TO ASSESS PT. BOWEL TONES HYPOACTIVE. MODERATE ABD DISTENTION. PT DENIES TENDERNESS WITH PALPATION. MIDLINE INCISION STERI STRIPS C/D/I. ABD BINDER IN PLACE. PERI DRESSING ON LLQ SEROUSAGUENOUS SHADOWING OTHERWISE D/I. PERI DRESSING ON RLQ SEROUSAGUENOUS SHADOWING WELL OTHERWISE D/I. PT REPORTS NO OTHER NEEDS AT THIS TIME. PT RESTING IN BED WITH EYES CLOSED. RR EVEN AND UNLABORED. CALL LIGHT IN REACH. IV INFUSING WNL. NG TUBE TO LIWS.
--- NOTE | 2022-11-09 04:09 | NUR ---
IN ROOM TO TITRATE PT DOWN TO 1L. PT O2 SATS MAINTAIN A 93% ON 1L OXYMASK. PT STATES HER PAIN IS "FINE" PT DENIES NEEDS FOR PAIN MEDICATION WHEN OFFERED. PT DENIES NAUSEA AT THIS TIME. PT RESTING IN BED WITH EYES CLOSED. RR EVEN AND UNLABORED. PT REPORTS NO OTHER NEEDS AT THIS TIME. CALL LIGHT IN REACH.
--- NOTE | 2022-11-09 05:45 | NUR ---
THIS RN NOTIFIED BY LAB THAT PT IS REQUESTING NEW IV AND THAT LABS CAN BE DRAWN FROM THE NEW IV. IN ROOM TO TALK WITH PT. PT REQUESTING NEW IV. NEW IV PLACED IN RIGHT FOREARM ON FIRST ATTEMPT. LABS PULLED FROM NEW IV. IV FLUSHED AND FLUIDS CHANGED OVER TO NEW IV. PT REQUESTING IV IN LEFT AC TO BE REMOVED. IV IN LEFT AC REMOVED AND WNL. NEW NG TUBE STICKER PLACED TO PTs NOSE WITH MASTISOL ADHESIVE. 200ML OF DARK GREEN FLUID DRAINED FROM NG TUBE. PT REPORTS NO OTHER NEEDS AT THIS TIME. CALL LIGHT IN REACH.
--- NOTE | 2022-11-09 08:14 | NUR ---
PT AWAKE IN ROOM. WHITE BOARD UPDATED. PT HAS CONCERN ABOUT LEAKING PERI. RN QUITA NOTIFIED. CALL LIGHT IN REACH. NO FURTHER NEEDS AT THIS TIME.
--- NOTE | 2022-11-09 13:44 | NUR ---
PT RESTING IN BED. THIS CASTABLES WORKER IN TO DO VITALS. PT SAID SUCTION DID NOT FEEL LIKE IT WAS SUCTIONING ANYMORE. THE TUBE HAD FALLEN OFF THE SUCTION CANISTER, THIS CASTABLES WORKER REPLACED THE TUBING TO THE SUCTION. ROXANN DEVLIN NOTIFED. CALL LIGHT IN REACH. NO FURTHER NEEDS AT THIS TIME.
--- NOTE | 2022-11-09 15:40 | NUR ---
PATIENT UP TO BATHROOM AND THEN RECLINER. HAS BEEN AMBULATING IN HALLS. TOLERATING ACTIVITY WELL. ADMINISTERED IV TYELENOL PER MAR FOR PAIN 4/10 ON PAIN SCALE. PLACED T-DRAIN SPONGES AT PERI INSERTION SITES, RIGHT PERI CONTINUES TO LEAK SEROSANGUINIOUS DRAIANGE.
--- NOTE | 2022-11-09 17:33 | NUR ---
PATIENT RESTING. ASSESSMENT DONE. PATIENT REPORTS PAIN 1-2 ON PAIN SCALE, DENIES NEEDS FOR PAIN MEDICATION. IV FLUIDS INFUSING 125ML/HR. ABDOMEN IS LESS DISTENDED. PATIENT REPORTS ACTIVE FLATUS THROUGHOUT DAY. UP AMBULATING SEVERAL TIMES THROUGHOUT DAY, TOLERATING ACTIVITY WELL. PERI SITES TO LOWER ABDOMEN HAVE DRAINAGE SPONGE TO COLLECT DRAINAGE. NG TO INTERMITTENT SUCTION, 400 ML TOTAL OUT FOR DAYSHIFT.
--- NOTE | 2022-11-09 19:00 | NUR ---
ANSWERED CALL LIGHT. SBA TO BATHROOM AND BACK TO BED. CHANGED NGT CONNECTOR TO THE RIGHT ONE. PATIENT DENIES ANY FURHTER CARE OR NEEDS.
--- NOTE | 2022-11-09 19:20 | NUR ---
REPORT RECEIVED FROM ROXANN DEVLIN. PT LAYING IN BED AND RESPONDS WHEN ADDRESSED. PT REPORTS SHE IS FEELING "BETTER TODAY AND HAS PASSES SOME GAS BUT NOT SINCE ABOUT 1000." PT REPORTS NO NEEDS AT THIS TIME. CALL LIGHT IN REACH.
--- NOTE | 2022-11-09 20:46 | NUR ---
IN TO ADMINISTER MEDICATIONS, SEE MAR. IV INFUSING WNL. MICKY KAUR IN AND COMPLETES VITALS. I&Os COMPLETE. PT REQUESTING TOILETING NEEDS. PT HAS STEADY GAIT TO RESTROOM AND THEN WALKS 1 LAP AROUND THE MED/SURG FLOOR. ASSESSMENT COMPLETE. LUNG SOUNDS CLEAR IN RUL, GUI AND LLL. CRACKLES IN RLL. HEART RHYTHM TACHYCARDIC. BOWEL TONES ACTIVE. PT REPORST A LITTLE TENDERNESS WITH PALPATION TO ABD. MIDLINE INCISION WITH STERI-STRIPS C/D/I. ABD BINDER IN PLACE. RLQ AND LLQ DRESSINGS C/D/I. MODERATE DISTENTION TO ABD. SMALL AMOUNT OF SEROUSANGUENOUS DRAINAGE NOTED TO RLQ AND LLQ PERI DRAINS, NOT EPTIED AT THIS TIME. 200ML OF BROWN CONTENT FROM NG TUBE NOTED. PT REPORTS PAIN 2/10 IN LOWER BACK, BUT DENIES ANY PAIN MEDICATION WHEN OFFERED. PT DENIES HOT PACK FOR LOWER BACK WHEN OFFERED. IV INFUSING WNL. PT DENIES ANY NEEDS AT THIS TIME. CALL LIGHT IN REACH.
--- NOTE | 2022-11-09 23:45 | NUR ---
IN TO ROUND ON PT. AWAKE IN BED AND RESPONDS WHEN ADDRESSED. PT REPORTING NO PAIN AT THIS TIME. PT REQUESTING TO USE RESTOOM. PT NG TUBE CLAMPED AND IV UNPLUGGED FROM WALL. PT AMBULATES WITH A STEADY GAIT FROM BED TO RESTROOM AND BACK TO BED. SMALL LIQUID BM NOTED ALONG WITH URINE NOTED. PT STATES "WE SHOULD HAVE A LIBERTARIAN OR SOMETHING." PT BACK IN BED. NG TUBE TO LIWS. IV PLUGGED INTO WALL AND INFUSING WNL. PT ON 1L OXYMASK WITH O2 SATS AT 93%. PT REQUESTING ICE CHIPS. ICE CHIPS PROVIDED. PT REPORTS NO OTHER NEEDS AT THIS TIME. CALL LIGHT IN REACH.
--- NOTE | 2022-11-10 00:17 | NUR ---
PATIENT CALLED TO USE THE BATHROOM. SBA. PATIENT HAD SMALL WATERY BM AND VOIDED 100ML YELLOW URINE. PATIENT IS BACK IN BED. NGT IN PLACE. NO OTHER NEEDS AT THIS TIME.
--- NOTE | 2022-11-10 01:18 | NUR ---
PATIENT REQUESTED OF BEDSIDE COMMODE DUE TO HAVING LOOSE BOWEL MOVEMENT. PRIMARY RN NOTIFIED. BEDSIDE COMMODE PROVIDED. PATIENT IS ALERT AND ORIENTED. PATIENT AGREED TO STILL USE THE CALL BUTTON WHEN SHE GETS UP BECAUSE OF THE NGT AND IV ON.
--- NOTE | 2022-11-10 05:00 | NUR ---
IN TO ROUND ON PT. PT REPORTING PAIN 4/10 IN ABD. PRN TYLENOL ADMINISTERED, SEE MAR. IV INFUSING WNL. PT REPORTS MULTIPLE LUQIUD STOOL. BSC AT BEDSIDE PT STATES "IT HITS HER LIKE A VAN, LIKE I GOTTA GET THERE RIGHT AWAY." BSC EMPTIED. ASSESSMENT COMPLETE. LUNG SOUNDS CLEAR. BOWEL ONES ACTIVE. PT REPORTS "LITTLE TENDERNESS, NOT TERRIBLE" WITH PALPATION TO ABD. MIDLINE INCISION WITH STERI-STRIPS C/D/I. ABD BINDER IN PLACE. RLQ AND LLQ DRESSINGS C/D/I. PERI DRAINS EMPTIED 10ML FROM RLQ PERI AND 10ML FROM LLQ PERI. BOTH SEROUSANGUENOUS DRAINAGE. NG TUBE TO LIWS. PT HAS TAKEN OXYMASK OFF. O2 SPOT CHECK AND O2 SATS AT 91% ON RA. PT REPORTS NO OTHER NEEDS AT THIS TIME. CALL LIGHT IN REACH.
--- NOTE | 2022-11-10 07:36 | NUR ---
Recieved report from spd manager RN. Pt resting in bed watching tv.
--- NOTE | 2022-11-10 09:55 | NUR ---
PT CALL LIGHT ANSWERED. PT REQ WARM BLANKET. WARM BLANKET PROVIDED. NO FURTHER NEEDS. CALL LIGHT WITHIN REACH
--- NOTE | 2022-11-10 11:30 | NUR ---
AFTER PATIENT BRUSHED HER TEETH AND USED THE MOUTH WASH. GOT PATIENT TWO WARM BLANKETS. PATIENT IS LAYING IN BED.
--- NOTE | 2022-11-10 11:33 | NUR ---
PATIENT ALSO BRUSHED HER HAIR.
--- NOTE | 2022-11-10 13:04 | NUR ---
THIS NURSE IN TO CHECK ON PATIENT. PATIENT RESTING COMFORTABLY IN BED, STATES SHE IS IN GOOD SPIRITS AND FEELS THAT THINGS ARE GOING UPHILL NOW. SHE FEELS IF HER BM ARE BECOMING MORE FIRM AND LESS LIQUID. IV FLUIDS/LR RUNNING.
--- NOTE | 2022-11-10 14:10 | NUR ---
Spoke with Rachel. She has returned with an ileus. She cont. to live in her apartment with 15 steps to enter. She denies issues getting into her home. Her son in law assists her as her daughter has a 7 week . Pt has an NG in place, plancs on dc to home when cleared medically. Does not use any DME.
--- NOTE | 2022-11-10 14:19 | NUR ---
PATIENTS NG TUBE FLUSHED WITH 40ML OF TAP WATER. PT STARTING TO LOSE HOPE THAT HER NG TUBE WILL COME OUT TODAY. PT GIVEN HER 1400 REGLAN.
--- NOTE | 2022-11-10 15:17 | NUR ---
IN TO SEE PATIENT. PERI TUBES REMAIN, NG TUBE WAS TAKEN OUT BY . PT TO CONTINUE NPO WITH ICE CHIPS ONLY UNTIL TOMORROW. PATIENT SALINE LOCKED AND UP AND WALKING THE HALLWAYS. PATIENTS SPIRITS HAVE GONE UP SINCE HAVING THE NG TUBE TAKEN OUT.
--- NOTE | 2022-11-10 15:31 | NUR ---
PATIENT WALKED THREE LAPS AROUND MED SURG. WHEN SHE GOT BACK TO HER ROOM SHE WENT IN THE BATHROOM AND WASHED HER FACE AND BRUSHED HER TEETH AND COMBED HER HAIR.
--- NOTE | 2022-11-10 15:39 | NUR ---
PATIENT SAID SHE WOULD LIKE TO TAKE A SHOWER TOMORROW.
--- NOTE | 2022-11-10 17:30 | NUR ---
PATIENT C/O THROAT IRRITATION SINCE NG TUBE HAS BEEN TAKEN OUT. PT STATES SHE IS ALSO OFF HER WELLBUTRIN XL FOR THE LAST FEW DAYS AND FEELS LIKE SHE NEEDS THIS. IN OFFICE, ADVISED. HE WOULD LIKE TO DO CARAFATE "SLURRY" FOR PATIENT TO CALM HER THROAT IRRITATION. HE WILL PLACE ORDER.
--- NOTE | 2022-11-10 19:25 | NUR ---
REPORT RECEIVED FROM DAY SHIFT RN. PT LYING IN BED ALERT AND ORIENTED. REPORTS BACK PAIN. WILL MEDICATE PER EMAR. NO FURTHER NEEDS. WHITE BOARD UPDATED. CALL LIGHT IN REACH.
--- NOTE | 2022-11-10 21:20 | NUR ---
EVENING ASSESSMENT COMPLETE. SCHEDULED MEDS ADMIN PER EMAR. PT REPORTS PAIN IMPROVED AFTER PRN ADMIN. DENIES NAUSEA. MIDLINE INCISION WITH NO NEW DRAINAGE. BOWEL TONES ACTIVE. ABD SOFT AND DISTENDED. PERI X 2 WITH SCANT AMOUNT SEROSANG DRAINAGE. ABD BINDER IN PLACE. LOW GRADE TEMP NOTED. PT USING IS. IVF INFUSING WNL. SMALL AMOUNT ICE CHIPS PROVIDED. PT DENIES QUESTIONS OR CONCERNS. CALL LIGHT IN REACH.
--- NOTE | 2022-11-11 01:05 | NUR ---
PT RESTING IN BED WITH EYES CLOSED. RESPIRATIONS EVEN. CALL LIGHT IN REACH.
--- NOTE | 2022-11-11 02:24 | NUR ---
PT AWAKE IN BED FOR ASTRONOMY DEPARTMENT CHAIR. REPORTS SHE HAS BEEN RESTING OFF AND ON. C/O BACK PAIN 02/25. PRN FOR PAIN ADMIN PER EMAR. DENIES NAUSEA. SMALL AMOUNT ICE CHIPS PROVIDED. BSC EMPTIED OF 1000 ML CLEAR YELLOW URINE. NO BM. PT REPORTS FLATUS. NO FURTHER NEEDS AT THIS TIME. CALL LIGHT IN REACH.
--- NOTE | 2022-11-11 04:17 | NUR ---
PT RESTING IN BED WITH EYES CLOSED. RESPIRATIONS EVEN. CALL LIGHT IN REACH.
--- NOTE | 2022-11-11 06:20 | NUR ---
PT RESTING WITH EYES CLOSED. AWAKENS EASILY. VS AND I&O OBTAINED. PT DENIES PAIN OR NAUSEA. FEW ICE CHIPS PROVIDED. NO NEEDS AT THIS TIME.
--- NOTE | 2022-11-11 07:23 | NUR ---
Recieved report from deicer repairer RN, patient resting in bed.
--- NOTE | 2022-11-11 08:45 | NUR ---
THIS NURSE WENT IN TO TAKE PATIENTS MORNING MEDICATIONS. SHE IS CURRENTLY IN THE SHOWER. WILL RETURN IN A FEW MINUTES FOR MEDICATIONS.
--- NOTE | 2022-11-11 10:08 | NUR ---
PERI DRAINS REMOVED BY . PT ON FULL LIQUID DIET. PATIENT UP IN CHAIR EATING PUDDING. IV SALINE LOCKED. PAIN 0/10. PT WAS UP AND WALKED 4 LAPS AROUND THE MED SURG FLOOR. PT GIVEN LOZENGES FOR HER THROAT IRRITATION FROM THE REMOVAL OF THE NG TUBE YESTERDAY.
--- NOTE | 2022-11-11 11:00 | NUR ---
Pt walking in dia, NG is out. Wants to go home. Awaiting visit from Dr. Barcenas.
--- NOTE | 2022-11-11 11:51 | NUR ---
Patient up in the chair still, she is about to go for another walk. Patient ate pudding and has been drinking water. Pt tolerating well, no nausea. Pt given a refill on her water.
--- NOTE | 2022-11-11 12:00 | NUR ---
PATIENT TOOK A SHOWER THIS MORNING. INDEPENDENT. SHE ALSO WALKED FOUR LAPS AROUND MED SURG.
--- NOTE | 2022-11-11 12:02 | NUR ---
WENT IN TO SEE WHAT TIME SHE TOOK A SHOWER. AND SHE WAS UP AND PUTTING HER MAGAZINES AWAY. STRAIGHTEN UP HER ROOM.
--- NOTE | 2022-11-11 12:16 | NUR ---
PATIENT UP IN CHAIR, ATE 10% OF HER LUNCH WITH NO NAUSEA. PATIENT PLANS TO AMBULATE BEFORE RESTING IN BED.
--- NOTE | 2022-11-11 12:37 | NUR ---
PATIENT UP TO AMBULATE 3 LAPS.
--- NOTE | 2022-11-11 12:37 | NUR ---
WHEN I CAME BACK FROM LUNCH. PATIENT WAS WALKING. ASKED HER HOW MANY LAPS SHE DID SHE SAID FOUR LAPS. NOW SHE IS GOING TO TAKE A NAP.
--- NOTE | 2022-11-11 13:04 | NUR ---
Patient in bed, just finished her lunch. Pt requesting oral tylenol and would like to restart her wellbutrin XL now that she is no longer NPO. Tolerating lunch with no nausea. Pt on full liquid diet. Phone call to day surgery where is at to advised of patients request. They will call back. A message was also left on cell phone.
--- NOTE | 2022-11-11 13:27 | NUR ---
PT SITTING IN CHAIR-ALERT AND ORIENTED. PT HAD JUST FINISHED WALK IN BRODY, NOW STARTING TO EAT SOME SOUP. PT ADMITTED THAT THIS HAS BEEN MUCH MORE DIFFICULT THAN SHE HAD EVER THOUGHT. PT HAS RECENTLY MOVED HERE TO BE WITH FAMILY. HEALTH HAS BEEN A DIFFICULT CHALLENGE SINCE MOVING HERE. GAVE G.POST, BLESSING AND WILL RETURN.
--- NOTE | 2022-11-11 13:57 | NUR ---
PATIENT IN BED, GIVEN A WARM BLANKET AND WATER. CURTAINS CLOSED PATIENT WOULD LIKE TO TAKE A NAP. PT OVERALL IMPROVING AND HAPPY THAT SHE IS DOING SO WELL TODAY.
--- NOTE | 2022-11-11 13:58 | NUR ---
DRESSING CHANGED ON PERI DRAIN ON THE RIGHT SIDE. APPLIED GUAZE AND TAPE.
--- NOTE | 2022-11-11 16:07 | NUR ---
WENT IN TO CHECK ON PATIENT. PATIENT JUST WOKE UP. WE VISITED A LITTLE BIT.
--- NOTE | 2022-11-11 16:46 | NUR ---
PATIENT UP AND WALKING THE BRODY IN MED SURG.
--- NOTE | 2022-11-11 19:57 | NUR ---
REPORT RECEIVED FROM DAY SHIFT RN. PT SITTING IN RECLINER ALERT AND ORIENTED. DENIES NEEDS. WHITE BOARD UPDATED. CALL LIGHT IN REACH.
--- NOTE | 2022-11-11 21:10 | NUR ---
EVENING ASSESSMENT COMPLETE. SCHEDULED MEDS ADMIN PER EMAR. PRN ADMIN FOR BACK PAIN. PT DENIES NAUSEA. MIDLINE DRESSING CDI. PERI SITE X 2 WITH DRY GAUZE. BOWEL TONES ACTIVE. PT REPORTS FLATUS. ABD SOFT. ABD BINDER IN PLACE. PUDDING AND WATER PROVIDED. PT DENIES QUESTIONS OR CONCERNS. CALL LIGHT IN REACH.
--- NOTE | 2022-11-12 00:37 | NUR ---
PT RESTING IN BED WITH EYES CLOSED. RESPIRATIONS EVEN. CALL LIGHT IN REACH.
--- NOTE | 2022-11-12 02:04 | NUR ---
SCHEDULED MEDS ADMIN PER EMAR. PT REPORTS SHE IS RESTING WELL. DENIES NEEDS AT THIS TIME.
--- NOTE | 2022-11-12 06:55 | NUR ---
PT REPORTS ABD/INCISIONAL PAIN 01/26. PRN FOR PAIN ADMIN PER EMAR. PT DENIES NAUSEA. PUDDING PROVIDED. NO FURTHER NEEDS.
--- NOTE | 2022-11-12 07:13 | NUR ---
Report from Ciarra Gilbert RN. Patient sitting up in bed. Denies needs at this time. Call light in reach.
--- NOTE | 2022-11-12 08:40 | NUR ---
AMBULATED IN HALLWAY ONCE THIS AM. REFUSED HEPARIN STATING SHE WILL AMBULATE EXTRA TODAY. STATES "IT HAS JUST BEEN A LONG WEEK AND THOSE HURT." SITTING UP IN RECLINER AT THIS TIME. CALL LIGHT IN REACH. DENIES NEEDS AT THIS TIME.
--- NOTE | 2022-11-12 11:09 | NUR ---
PATIENT IS FEELING MUCH BETTER. SHE IS ON A FL DIET AND TOLERATING IT WELL. SHE IS WONDERING IF SHE CAN HAVE DIET INFO FOR WHEN SHE DOES HOME. I SAID WE'LL HAVE TO SEE WHAT DR. BETHEA ORDERS. I'M HAPPY TO COME BACK TO PROVIDE ANY THERAPEUTIC DIET INFO IF NEEDED. ASKED GEORGE, PATIENT'S RN, TO GIVE ME A CALL IF PATIENT NEEDS SPECIFIC DIET INFO FOR HOME.
--- NOTE | 2022-11-12 13:00 | NUR ---
Spoke with pt. She is concerned about dc. States she wants to go home, but is afraid as she had to return. Asked her to discuss this with Dr. Barcenas.
--- NOTE | 2022-11-12 13:43 | NUR ---
SITTING UP IN RECLINER. DENIES PAIN AT THIS TIME. STATES SHE IS HOPING TO HAVE BOWEL MOVEMENT AFTER EATING REGULAR DIET. DENIES OTHER NEEDS AT THIS TIME. CALL LIGHT IN REACH.
--- NOTE | 2022-11-12 14:15 | NUR ---
PT ALERT, ORIENTED AND SITTTING IN CHAIR. PT LOOKS MUCH BETTER TODAY, SAID SHE IS FEELING BETTER. HAD HOPED TO DC TODAY,DECISION MADE TO STAY UNTIL THURS AND SEE HOW BOWELS REACT OFF MEDS TO REGULATE. GAVE BLESSING, PT THANKED ME FOR VISIT. PLANS ON WALKING IN [place]. WILL FOLLOW
--- NOTE | 2022-11-12 15:37 | NUR ---
WENT IN TO CHECK ON PATIENT. PATIENT TOLD ME THAT SHE DID 5 LAPS.
--- NOTE | 2022-11-12 17:16 | NUR ---
PATIENT JUST GOT BACK TO HER ROOM AT 1700 FROM WALKING. I ASKED HER HOW MANY LAPS DID SHE DO AND SHE SAID 22 LAPS. NOW PATIENT IS EATING HER DINNER.
--- NOTE | 2022-11-12 18:48 | NUR ---
SWITCHED TO REGULAR DIET TODAY. SMEAR OF BM THIS AM. NO OTHER BM'S TODAY. AMBULATES IN HALLWAY INDEPENDENTLY MULTIPLE TIMES. NO NAUSEA/VOMITING TODAY. DENIES PAIN.
--- NOTE | 2022-11-12 19:19 | NUR ---
REPORT RECEIVED FROM ROXANN VAZQUEZ. PT SITTING UP IN CHAIR RR EVEN AND UNLABORED. PT REPORTS NO NEEDS AT THIS TIME. CALL LIGHT IN REACH.
--- NOTE | 2022-11-12 20:20 | NUR ---
IN TO ADMINISTER MEDICATIONS, SEE MAR. PT SITTING UP IN CHAIR. PT TAKES PO MEDICATIONS WITH NO ISSUES. PT REFUSES HEPARIN INJECTION AND STATES "I HAVE BEEN UP AND WALKING A LOT TODAY." VITALS AND I&Os COMPLETE. ASSESSMENT COMPLETE. LUNG SOUNDS CLEAR. BOWEL TONES ACTIVE. ABD TENDER WITH PALPATION TOWARDS UPPER PORTION OF INCIONS. PT STATES "I THINK THE BINDER WAS RUBBING ON IT AND THAT IS WHY IT IS SORE." PT REPORTING PAIN 4/10 AT UPPER PORTION OF INCISION. PRN TYLENOL ADMINISTERED, SEE MAR. MIDLINE STERI-STRIPS C/D/I. ABD BINDER IN PLACE. RLQ DRESSING C/D/I. LLQ DRESSING C/D/I. PT REPORTS NO BM TODAY, BUT REPORTS HAVING FLATULANCE TODAY. PT REQUESTING WATER. WATER PROVIDED. NO OTHER NEEDS REPORTED. CALL LIGHT IN REACH.
--- NOTE | 2022-11-12 22:01 | NUR ---
IN TO ROUND ON PT. PT LAYING IN BED SEMI-FOWLERS. RR EVEN AND UNLABORED. EYES CLOSED. PT AWAKENS WHEN DOOR IS OPEN. PT REPORTING PAIN 4/10 AT THE UPPER INCISIONAL SITE. PT FFERED PRN PAIN MEDICATION. PT REFUSED. PT REPORTS NO OTHER NEEDS AT THIS TIME. CALL LIGHT IN REACH.
--- NOTE | 2022-11-13 01:18 | NUR ---
PT LAYING IN BED WITH EYES OPEN. PT STATES "I JUST WOKE UP." PT DENIES ANY NEEDS WHEN OFFERED. HAT IN TOILET EMPTIED. WHITE BOARD UPDATED. CALL LIGHT IN REACH.
--- NOTE | 2022-11-13 05:27 | NUR ---
IN TO ROUND ON PT. PT RESTING IN BED WITH EYES CLOSED RR EVEN AND UNLABORED. PT RESPONDS WHEN ASKED QUESTIONS. ASSESSMENT COMPLETE. LUNG SOUNDS CLEAR. BOWEL TONES ACTIVE. ABD MIDLNIE INCISION STERI-STRIPS C/D/I. RLQ DRESSING C/D/I. LLQ DRESSING C/D/I. PT REPORTS NO PAIN AT THIS TIME. MILD ABD DISTENTION. ABD BINDER IN PLACE. PT REPORTS NON-TENDER WITH PALPATION. VITALS AND I&Os COMPLETE. PT RESTING IN BED WITH EYES CLOSED RR EVEN AND UNLABORED. NO NEEDS IDENTIFIED AT THIS TIME. CALL LIGHT IN REACH.
--- NOTE | 2022-11-13 07:09 | NUR ---
pt call light answered. pt req urine hat to be emptied. pt req another cup of coffee. coffee provided. pt req new bedside trash bag. new bag provided. no further needs at this time. call light within reach.
--- NOTE | 2022-11-13 07:30 | NUR ---
RECIEVED SHIFT REPORT. PT AWAKE IN BED. DENIES FURTHER NEEDS. CALL LIGHT WITHIN REACH
--- NOTE | 2022-11-13 08:05 | NUR ---
PT WALKING HALLS. PT STATES SHE HAD A BM.
--- NOTE | 2022-11-13 08:45 | NUR ---
PT ABLE TO HAVE TWO BMS THIS MORNING. INCISION SITE STERI STRIPS C/D/I. ABD IN PLACE. OLD DRAIN TUBES REDRESSED WITH 2X2 GUAZE. PT CONTINUES TO WALK THE HALLS. DENIES PAIN. CALL LIGHT WITHIN REACH
--- NOTE | 2022-11-13 11:40 | NUR ---
Spoke with pt and she plans on dc today. States she is feeling better today and feels better about going home. Denies needs, son in law will transport her.
--- NOTE | 2022-11-13 12:49 | NUR ---
Sitting up in bed. Denies needs at this time. Call light in reach. States she would like to go home.
--- NOTE | 2022-11-13 13:23 | NUR ---
PATIENT UP IN CHAIR. STATES SHE WOULD LIKE TO SIGN OUT AMA BECAUSE SHE WANTS TO GO HOME AND DIDN'T EAT LUNCH. GRANOLA BARS PROVIDED. Harsha CHOPRA, DAY SURGERY, NOTIFIED OF PATIENT DESIRE TO LEAVE AMA. DR. BETHEA IN SURGERY. Harsha CHOPRA, RN, STATES SHE WILL NOTIFY DR. BETHEA OF PATIENT WANT TO LEAVE FACILITY. PATIENT NOTIFIED. STATES SHE WILL NOT HAVE A RIDE UNTIL 1400.
--- NOTE | 2022-11-13 14:26 | NUR ---
PT DRESSED, GATHERING PERSONAL ITEMS-PREPARING FOR DC TODAY. SHE IS FEELING READY TO RETURN HOME, THANKED ME FOR VISITING. GAVE BLESSING
--- NOTE | 2022-11-13 14:33 | NUR ---
DR. BETHEA IN TO SEE PATIENT. VERBAL ORDERS PATIENT MAY BE DC'D TO HOME.
--- NOTE | 2022-11-14 14:52 | HP ---
[facility] [address], [place] [address] Signed ADMISSION DATE: 11/08/2022 REASON FOR ADMISSION: Abdominal distention, probable ileus. HISTORY OF PRESENT ILLNESS: This 67-year-old white woman underwent complex abdominal wall reconstruction for incisional hernia that was very symptomatic by me on November 04 (Thursday, today is Thursday). She was admitted postoperatively for pain management and required 48 hours of hospitalization. Drains were placed in the left and right subcutaneous space and she did require components release medialization of the linea alba in addition to implantation of Prolene mesh in the properitoneal space. The patient has underlying anxiety issues for which bupropion is given. She was discharged to home tolerating a regular diet, managing her drains well. Yesterday, she had bloating, nausea, and inability to tolerate oral intake. Her family took her to [facility] ER in the [facility] yesterday where she underwent a CT scan. She was noted to have stool within the right colon, but some distended loops of small bowel throughout including on the left side. She had been vomiting, though has not done so since her evaluation today in the emergency room by Dr. Armando Alvarez. She was discharged to home with Dilaudid, Motrin and Tylenol for pain medication. She really has taken no Dilaudid medication since the . Her drain output remained serosanguineous and relatively small in amount. She had tried Zofran at home for nausea, which was not beneficial. 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 Her evaluation in the emergency room today shows her to have a normal white count of 4.8, hematocrit of 37.8, platelets 378,000 Chem profile is essentially normal. Potassium is 3.9. Alkaline phosphatase and liver enzymes are normal. Serology is negative for COVID. I have reviewed her CT scan images that are from [facility]. She does have distended loops of small bowel and some colonic stool in the right colon. I see no sign of intraabdominal free air. There were few bubbles in the subcutaneous space related to hernia repair, which is not too surprising. The drains appear to be well positioned. REVIEW OF SYSTEMS: Electronically Signed By: NHUNG BETHEA MD 11/14/22 1452 PATIENT NAME: MARKELL LACKEY HISTORY AND PHYSICAL DATE OF : 57 REPORT #: [id number] PHYSICIAN: NHUNG BETHEA MD PCP: COLIN VELA REPORT IS CONFIDENTIAL AND NOT TO BE RELEASED WITHOUT AUTHORIZATION [address] [address] Signed She denies any shortness of breath or chest pain. She does have abdominal distention and feels that she needs to have a "bowel movement." She is unable to tolerate oral intake, however. It is noted that she was prescribed milk of magnesia on a daily basis following her operation. She denies any chest pain. She has had no dysphagia. She previously had vomiting, not currently an issue. PHYSICAL EXAMINATION: GENERAL: Pleasant white woman, who does not look systemically toxic. VITAL SIGNS: Show a temperature of 98.6, pulse 107, blood pressure 145/92. HEENT: Mucous membranes are slightly dry. CHEST: Clear. HEART: Regular. ABDOMEN: Clearly distended compared to preoperatively and postoperatively recently. Drain shows serosanguineous fluid. She does not have much tenderness to the abdominal wall in any way. There is no sign of erythema, crepitus nor sign of ecchymosis. EXTREMITIES: Show no clubbing, cyanosis, or edema. ASSESSMENT AND PLAN: It appears that she has an ileus. Noted also on the CT scan was a rather distended gallbladder. Her liver enzymes are normal. She has not complained of right upper abdominal pain. The possibility of postoperative cholecystitis is notable, but somewhat unlikely; simple lack of intake oral food can cause abdominal or gallbladder distention. She does not have an elevated white count or sign of systemic toxicity. It would be quite unlikely the intra-abdominal injury has occurred to account for an ileus, though everything is considered of course. As she is unable to maintain hydration in an outpatient setting, I have admitted her for IV fluid administration and continued monitoring. She may require additional imaging. It would be beneficial to stimulate passage of right-sided colonic stool, but if ileus, this may take some time. We will additionally check her magnesium and be sure that it is repleted to level of normalcy to ensure optimization of bowel function. We discussed all this in detail. MD KEVNI Swenson/MELISSAL /[id number] Electronically Signed By: NHUNG BETHEA MD 11/14/22 1452 PATIENT NAME: MARKELL LACKEY HISTORY AND PHYSICAL DATE OF : 57 REPORT #: [id number] PHYSICIAN: NHUNG BETHEA MD PCP: COLIN VELA REPORT IS CONFIDENTIAL AND NOT TO BE RELEASED WITHOUT AUTHORIZATION [facility] [address] [place] [address] Signed cc: Armando Alvarez MD Copies: ARMANDO ALVAREZ MD ~ Electronically Signed By: NHUNG BETHEA MD 11/14/22 1452 PATIENT NAME: MARKELL LACKEY HISTORY AND PHYSICAL DATE OF : 57 REPORT #: [id number] PHYSICIAN: NHUNG BETHEA MD PCP: COLIN VELA REPORT IS CONFIDENTIAL AND NOT TO BE RELEASED WITHOUT AUTHORIZATION
== END 2022-11-13 14:55 | disposition home or self-care (01) | DRG 393 ==
LOC: ED 07:29 → MS 07:30
PROVIDERS: ADMIT Surgery; ATTEND Surgery
DX: K91.89 Other postprocedural complications and disorders of digestive system (principal); K56.2 Volvulus; K56.7 Ileus, unspecified; F41.9 Anxiety disorder, unspecified; E86.0 Dehydration; Z90.710 Acquired absence of both cervix and uterus; Z88.2 Allergy status to sulfonamides; Z91.030 Bee allergy status; Z79.2 Long term (current) use of antibiotics; Z79.899 Other long term (current) drug therapy; Y83.8 Other surgical procedures as the cause of abnormal reaction of the patient, or of later complication, without mention of misadventure at the time of the procedure
CPT/HCPCS: 36415; 71045; 74018; 80048; 80053; 83690; 83735; 85025; 94760; A9270; C9803; J0131; J1170; J1644; J1790; J1885; J2212; J2405; J2765; J7030; J7121; U0003